=== PATIENT | female | born 1985 | race Caucasian/White ===

== ENCOUNTER 2017-02-11 17:59 | Emergency (ER) | END 2017-02-11 19:44 | disposition home or self-care (01) | DX: F10.120 Alcohol abuse with intoxication, uncomplicated (principal); R40.2352 Coma scale, best motor response, localizes pain, at arrival to emergency department; R40.2212 Coma scale, best verbal response, none, at arrival to emergency department | CPT/HCPCS: 70450; 72125; 80306; 82962; 84703; 99285; J7030 ==